=== PATIENT | female | born 1970 | race Caucasian/White ===

== ENCOUNTER 2022-10-11 08:23 | Outpatient (CLI) | payer MEDICARE, MEDICAID, SELFPAY ==
--- NOTE | 2022-10-11 08:48 | ECG_ITS ---
Measurements Intervals [place] Rate: 80 P: 46 AR: 161 QRS: 43 QRSD: 99 T: 49 QT: 346 QTc: 399 Interpretive Statements SINUS RHYTHM NO PREVIOUS ECG AVAILABLE FOR COMPARISON Electronically Signed On 10-11-2022 13:21:05 [employer] by Maxx Jernigan M.D.
== END 2022-10-11 08:24 | disposition home or self-care (01) ==
PROVIDERS: Visit Provider Otolaryngology
DX: Z01.818 Encounter for other preprocedural examination (principal); I10 Essential (primary) hypertension
CPT/HCPCS: 93005

== ENCOUNTER 2022-10-16 00:27 | Day surgery (SDC) | payer MEDICARE, MEDICAID, SELFPAY ==
[2022-10-03 08:55] VITALS: BMI 39.1
--- NOTE | 2022-10-03 08:56 | PC.NURSE ---
Report to the Outpatient Waiting Room, entrance under the green pavilion located off [facility], at time _0630_ on date _[id number]_. Planned Procedure Time: _0830_. Time changes happen often and if your time is changed the preop area will call you the afternoon before. - You and your visitor will be asked to self-screen and do not enter if you have any COVID symptoms. - Only one visitor is requested with a max of two and NO children visitors are allowed at this time. - The patient visitor may be requested to leave or wait in car when not with patient due to distancing restrictions. - A mask is optional within the hospital. Patients may have clear liquids (water, carbonated beverages, clear teas, apple juice) until 3 hours prior to surgery with a maximum of 20 ounces. - No food from midnight until time of surgery Take the following medications with a SIP of water the morning of surgery: ___Bupropian, Ariprazole, Phentermine and hydrocodone. Medications to discontinue per physician __none Date to take last dose Please no make-up, nail ku[place]i, hairspray, perfume, deodorant, or body powder the day of surgery. No jewelry (including any body piercings) or valuables the day of surgery, leave them at home. Please take a shower or bath the night before, or the morning of, surgery with an antibacterial soap. Wear comfortable, loose fitting clothing. - Jewelry must be removed prior to entering the operating room. Rings and piercings that are not removed may be cut off. - The hospital will not accept responsibility for valuables. - Please leave all valuables, including medications, at home the day of surgery. If you are going home after surgery, a licensed commercial trailer truck driver must drive you home. - NO public transportation without another adult if you receive anesthesia. - We recommend that an adult stay with you for 24 hours following discharge. - We also recommend that you do not drive, make important decision, drink alcoholic beverages, or take any drugs that were not prescribed by your health care provider for at least 24 hours after your discharge time. Follow any additional instructions given to you from your surgeon. If you or anyone in your household have experienced Covid symptoms in the past week, please notify your surgeon or the nurse liaison at the phone number below for possible testing. Telephone instructions given to _Patient____and asked if any additional questions and then verbalized understanding. Patient advised to call surgeon office or pre surgery nurse liaison [phone] if any additional questions.
[2022-10-16] VITALS (8 sets, daily range): BP systolic 84–138; BP diastolic 55–93; PULSE 78–86; RESP 16–25; TEMP 36.1–36.8; O2SAT 92–98
[2022-10-16] MEDS: ACETAMINOPHEN 500 MG TABLET 1000 MG PO (08:10)
[2022-10-16] MEDS: LACTATED RINGERS 1,000 ML 30 ML IV CONT ×2 (08:20→11:16)
--- NOTE | 2022-10-16 08:22 | WPDANESEPPF ---
Anes - Initial Pre Proc Eval Procedure: Operation Date: 10/16/22 09:30 Proposed Procedures p Septoplasty, - Román Spaulding MD s Adenoidectomy - Román Spaulding MD Date/Time: 10/16/22 08:22 Surgeon: Román Spaulding MD Pre Op Diagnosis: deviated septum, chronic adenoiditis Patient Data Age: 52 Gender: F Height: 1.52 m Weight: 92.6 kg Last Vital Signs Temp 36.1 C L 10/16/22 07:50 Pulse 78 10/16/22 07:50 Resp 20 10/16/22 07:50 BP 111/59 L 10/16/22 07:50 Pulse Ox 97 10/16/22 07:50 O2 Del Method Room Air 10/16/22 07:50 Allergies Allergy/AdvReac Type Severity Reaction Status Date / Time adhesive tape Allergy Mild Blister Verified 10/03/22 08:40 morphine AdvReac Mild UNABLE TO Verified 10/16/22 08:07 URINATE Home Medications Medication Instructions Recorded Confirmed Type amitriptyline 25 mg tablet 25 mg PO HS 10/03/22 10/16/22 History aripiprazole 2 mg tablet 2 mg PO DAILY 10/03/22 10/16/22 History bupropion HCl 300 mg 24 hr tablet, 300 mg PO DAILY 10/03/22 10/16/22 History extended release cholecalciferol (vitamin D3) 125 125 mcg PO DAILY 10/03/22 10/16/22 History mcg (5,000 unit) tablet (Vitamin D3) hydrocodone 7.5 mg-acetaminophen 1 tablet PO TID PRN Pain 10/03/22 10/16/22 History 325 mg tablet lisinopril 40 mg tablet 40 mg PO DAILY 10/03/22 10/16/22 History meloxicam 7.5 mg tablet 7.5 mg PO BID 10/03/22 10/16/22 History montelukast 10 mg tablet 10 mg PO HS 10/03/22 10/16/22 History paroxetine HCl 40 mg tablet 40 mg PO HS 10/03/22 10/16/22 History phentermine 37.5 mg tablet 18.75 mg PO BID 10/03/22 10/16/22 History Patient hx anesthesia problems: none Family hx anesthesia problems: none Results Review: All pre-operative results and documents have been reviewed as part of the pre-operative evaluation. [facility] Social History Social History Smoking packs per day: 1 Smoking cigarettes per day: 20.0 Years smoked: 20 Smoking pack-years: 20.00 Smoking status: Current every day smoker Tobacco type: cigarettes Living arrangements: with family Spiritual care concerns: No Anes - Eval Final PreProcedure Day of Procedure 10/16/22 08:22 Patient weight: morbidly obese Heart: regular rate and rhythm Lungs: decreased breath sounds Airway: Mallampati scale class II Neurological: alert and oriented Last oral intake: >/= 8 hours ASA classification: III Emergent: no Anesthetic plan: proceed Anesthesia type and monitoring: general ETT and standard monitoring Results Review: All pre-operative results and documents have been reviewed as part of the pre-operative evaluation. Informed Consent: The patient's anesthetic plan and its attendant risks and benefits were discussed with the patient/family/POA. Questions were solicited and answers provided to the satisfaction of the patient/family/POA.
[2022-10-16] MEDS: SCOPOLAMINE 1.5 MG PATCH TRANSDERM (08:37)
--- NOTE | 2022-10-16 08:52 | PM.IMHP ---
H&P: HPI History of Present Illness Date/Time: 10/16/22 08:52 Chief Complaint: Nasal obstruction Narrative: Chronic nasal dyspnea. Hx of FESS x2. Tonsillectomy. Failed medical management Review of Systems Review of Systems: All systems reviewed & are unremarkable except as noted in HPI and below PMFSH Social History Social History Smoking packs per day: 1 Smoking cigarettes per day: 20.0 Years smoked: 20 Smoking pack-years: 20.00 Smoking status: Current every day smoker Tobacco type: cigarettes Living arrangements: with family Spiritual care concerns: No Meds Home Medications and Allergies Home Medications Medication Instructions Recorded Confirmed Type amitriptyline 25 mg tablet 25 mg PO HS 10/03/22 10/16/22 History aripiprazole 2 mg tablet 2 mg PO DAILY 10/03/22 10/16/22 History bupropion HCl 300 mg 24 hr tablet, 300 mg PO DAILY 10/03/22 10/16/22 History extended release cholecalciferol (vitamin D3) 125 125 mcg PO DAILY 10/03/22 10/16/22 History mcg (5,000 unit) tablet (Vitamin D3) hydrocodone 7.5 mg-acetaminophen 1 tablet PO TID PRN Pain 10/03/22 10/16/22 History 325 mg tablet lisinopril 40 mg tablet 40 mg PO DAILY 10/03/22 10/16/22 History meloxicam 7.5 mg tablet 7.5 mg PO BID 10/03/22 10/16/22 History montelukast 10 mg tablet 10 mg PO HS 10/03/22 10/16/22 History paroxetine HCl 40 mg tablet 40 mg PO HS 10/03/22 10/16/22 History phentermine 37.5 mg tablet 18.75 mg PO BID 10/03/22 10/16/22 History Allergies Allergy/AdvReac Type Severity Reaction Status Date / Time adhesive tape Allergy Mild Blister Verified 10/03/22 08:40 morphine AdvReac Mild UNABLE TO Verified 10/16/22 08:07 URINATE Vital Signs Vital Signs - 24 hr 10/16/22 07:50 Temperature 36.1 C L Pulse Rate 78 Respiratory Rate 20 Blood Pressure 111/59 L Pulse Oximetry 97 Oxygen Delivery Room Air Exam Narrative: deviated septum, adenoid hypertrphy, rest of exam wnl Assessment and Plan Assessment and plan (1) Deviated septum: Code(s): J34.2 - Deviated nasal septum Status: Acute Plan Cony has deviated septum, turbinate hypertrophy, adenoid hypertrophy. Here for septoturbinoplasty, adenoidectomy. r/b/a reviewed, she understands and agrees to proceed. Refer to outpt H&P for full details.
--- NOTE | 2022-10-16 08:54 | P.OP_ITS ---
Procedure Note - Detailed Date of Procedure 10/16/22 Pre-op Diagnosis deviated septum, chronic adenoiditis Post-op Diagnosis Same Procedure Performed Septoplasty, turbinoplasty, adenoidectomy. Surgeon Román Spaulding MD Anesthesia General Indications Nasal dyspnea Findings left septal spur. 25% obstructive adenoids, mild turbinate enlargement. Description of Procedure After obtaining informed consent and proper site verification the patient was brought to the operating room and placed on the operating table in the supine position. They were placed under general endotracheal anesthesia by the anesthesia provider. The patient was then draped in standard fashion for septoplasty and turbinoplasty. A timeout was performed and the correct patient and procedure were verified. The nasal cavity was injected with 1% lidocaine with 1-100,000 epinephrine and packed with afrin-soaked cottonoid pledgets. ? Attention was then directed to the nasal septum. A hemitransfixion incision was made in the left caudal septum and a mucoperichondrial flap was elevated in the usual fashion. The flap was elevated under endoscopic visualization and the remainder of the case was performed with endoscopic assistance. Using a D- knife, an incision was made through the cartilaginous septum with care to preserve the appropriate caudal and dorsal ?L-strut? of cartilage. The cartilage was then disarticulated from the bony-cartilaginous junction and the deviated cartilage was removed. Further deviated bone and cartilage was removed from the maxillary crest and posterior bony septum with care to avoid injury to the mucoperichondrial flap using a combination of dissection and Emmons- Das forceps. Once this was completed, the hemitransfixion incision was closed using simple interrupted 4-0 chromic suture. A quilting stitch to reapproximate the mucoperichondrial flaps was then placed using 4-0 plain gut suture on a Hai needle. Next, using endoscopic trans-nasal approach, the adenoids were removed using chakraborty ction electrocautery at 25 spray until the nasopharynx was clear.. ? Next attention was directed to the turbinates. Using a 0? telescope and 2mm turbinate blade microdebrider, a stab incision was made in the anterior face of the turbinate and dissection was carried posterior to perform submucosal resection. Next the turbinate was outfractured using a blunt instrument. A similar procedure was then performed on the right-hand side without difficulty. Perez splints covered in mupirocin ointment were placed in the nasal cavity and secured to the membranous septum using a 3-0 Prolene suture. ?The patient was awakened from general anesthesia extubated in the operating room, and transported to the recovery room in stable condition without complication. Estimated Blood Loss 100 Drains No Packing Yes (perez splints) Pathology None sent Complications No immediate complications Condition Stable Disposition PACU
--- NOTE | 2022-10-16 08:54 | WPDHPUPDATE1 ---
History and Physical Update Update Date/Time: 10/16/22 08:54 History and Physical has been reviewed, including an updated exam of the patient. There are NO changes in the patient's condition. Risks, benefits, and alternatives have been discussed and questions answered. Patient agrees to proceed with procedure.
[2022-10-16] MEDS: OXYMETAZOLINE HCL 0.05% NAS 15 ML BTL (*BKC) 1 SPRAY NASAL (09:03)
[2022-10-16] MEDS: ceFAZolin 2 GM/D5W 50 ML 2 GM/50 ML BAG IVPB (09:07)
[2022-10-16] MEDS: MUPIROCIN 2% OINT 22 GM TUBE 1 APPLIC EACH NARE (10:00)
[2022-10-16] MEDS: fentaNYL CITRATE INJ (*CRX) 100 MCG/2 ML VIAL 25 MCG IV PUSH ×5 (10:30→11:10)
[2022-10-16] MEDS: oxyCODONE HCL (*CRX) 5 MG TAB IR PO (11:30)
== END 2022-10-16 12:00 | disposition home or self-care (01) ==
PROVIDERS: Visit Provider Otolaryngology
PROC: (CPT 30520; principal; 2022-10-16 09:30)
PROC: (CPT 42831; 2022-10-16 09:30)
DX: J34.2 Deviated nasal septum (principal); J35.02 Chronic adenoiditis; J34.89 Other specified disorders of nose and nasal sinuses; F17.210 Nicotine dependence, cigarettes, uncomplicated
CPT/HCPCS: 42831; 30520; 30140; 93005; A9270; J0330; J0690; J1100; J2250; J2405; J2704; J3010; J7120